=== PATIENT | male | born 1930 | race Two or more races ===

== ENCOUNTER 2018-07-27 18:29 | Inpatient (IN) ==
[2018-07-27] MEDS ORDERED: Acetaminophen 325 MG Tablet PO ONE (20:56)
--- NOTE | 2018-07-27 21:10 | ED ---
HPI General Chief complaint: Weakness Stated complaint: Sent by dr/fever/weakness/cough/sob Time Seen by Provider: 07/27/18 20:31 Source: patient and family Mode of arrival: ambulatory Limitations: no limitations History of Present Illness HPI Narrative: 88-year-old male who is mainly Sudanese-speaking presents to the emergency department for evaluation of generalized weakness, cough, weakness, shortness of breath that started 2 days ago. His PCP recommended he come in for evaluation. In addition, patient has had right hip and low back pain that started while in [place] during a trip this week. History and translation is obtained through Rosanna, a family member in the room. He denies falls but developed this pain while in [place]. She states that patient has had a temperature of 101 but denies feeling feverish. When prompted, he admits to having some urinary incontinence and numbness to the anterior thighs. He denies illicit drug use or history of cancer. He denies chest pain but states when he coughs he has abdominal discomfort. Otherwise denies abdominal pain. They also draw my attention to a sore between the first and second interdigital space that he obtained while in [place]. State patient is normally able to move about without assistance. 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 They state that patient has a pacemaker because he has had a heart attack previously. Related Data Home Medications Medication Instructions Recorded Confirmed aspirin 1 tab PO DAILY 07/27/18 07/27/18 Allergies Allergy/AdvReac Type Severity Reaction Status Date / Time No Known Allergies Allergy Verified 07/27/18 18:55 Review of Systems ROS: all other systems reviewed are negative PMFSH History History Provided By: Patient and Family Member Medical History Medical History Pacemaker (Acute) Surgical history unknown (Acute) Social History Social History Substance History: No History of Abuse Second Hand Smoke Exposure: No Smoking Status: Former smoker Tobacco Type: Cigarettes How Often Do You Have a Drink Containing Alcohol: Monthly or less Recent Travel in [place] within the Last 8 Weeks: No Recent Out of Country Travel within the Last 8 Weeks: Yes Exam Narrative Exam Narrative: GENERAL: Well-developed, well-nourished in no apparent distress SKIN: Focused skin assessment warm/dry. left 1st interdigital space- macerated with white exudate HEAD: Atraumatic. Normocephalic. EYES: Pupils equal and round. No scleral icterus. No injection or drainage. ENT: No nasal bleeding or discharge. Mucous membranes pink and moist. NECK: Trachea midline. No JVD. No lymphadenopathy CARDIOVASCULAR: Regular rate and rhythm. No murmur appreciated. RESPIRATORY: No accessory muscle use. Clear to auscultation. Breath sounds equal bilaterally. GASTROINTESTINAL: Abdomen soft, non-tender, nondistended. Hepatic and splenic margins not palpable. MUSCULOSKELETAL: No obvious deformities. No clubbing. No cyanosis. No edema. Grade 5/5 strength upper and lower extremities, patient has difficulty sitting up on his own accord however NEUROLOGICAL: Awake and alert. No obvious cranial nerve deficits. Motor grossly within normal limits. Normal speech. PSYCHIATRIC: Appropriate mood and affect; insight and judgment normal. Course Initial Documented Vital Signs Temperature 98.0 F 07/27/18 18:40 Pulse Rate 60 07/27/18 18:40 Respiratory Rate 14 07/27/18 18:40 Blood Pressure 137/61 07/27/18 18:40 Pulse Oximetry 98 07/27/18 18:40 Last Documented Vital Signs Temperature 98.3 F 07/28/18 16:00 Pulse Rate 75 07/28/18 16:00 Respiratory Rate 18 07/28/18 16:00 Blood Pressure 138/68 07/28/18 16:00 Pulse Oximetry 96 07/28/18 16:00 Medical Decision Making JOURDAN Attestation JOURDAN supervised visit: Yes Attestation: I, Dr. Spain, have reviewed the advance practice practitioner's documentation and am in agreement, met with the patient face to face, made the diagnosis, and the medical decision making was done by me. The patient was initially evaluated by Katheryn, the JOURDAN. Please see their complete history and physical. *My assessment and Findings: The patient presents with a history of developing cough, generalized weakness, fever over the last 2 days. The patient returned from a trip to [place] on Thursday. The patient additionally reports having body aches that are more prominent in the right side of the low back and right hip. The patient also reports having an episode of urinary incontinence. He denies having any dysuria or urinary urgency. Patient's examination is remarkable for having generalized weakness. No signs of erythema edema on examination of the right hip, and the patient does have full range of motion. During the course of the patient's emergency department visit, the patient's history, examination, and differential diagnosis were reviewed with the patient. The patient was placed on a monitoring engineer with oximetry and frequent blood pressure monitoring. The patient had IV access obtained and blood work sent for analysis. The patient was initially provided Toradol 15 mg IV for pain, Rocephin 1 g IV, Zithromax 500 IV when a patchy infiltrate on the lungs was noted, normal saline at 500 mL bolus was administered. The patient's diagnostic studies are remarkable for a normal white count at 8.7 , hemoglobin 13.1, platelets 221, with a monocyte of 14.1 PT 11.7, PTT 28.2, chemistry is remarkable for a GFR of 69, calcium is 8.2, lactic acid was found to be within normal limits at 1.3, alk phos 127, magnesium is 2.2. Cardiac enzymes are within normal limits. 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 An MRI of the back was ordered to rule out cord compression due to the patient's back pain, reported weakness and urinary incontinence, however this was contraindicated due to the type of implanted pacemaker that the patient had. 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 The patient's case including history, pertinent physical examination findings, and laboratory studies were discussed with Dr. Kathleen. It was agreed that the patient would be admitted to the hospitalist service. The patient's results were discussed with the patient, including the plan of care. I explained that further testing and/ or monitoring is indicated based on the patient's history, examination, and/ or laboratory findings. Therefore, I recommended admission for additional evaluation. The patient expressed understanding and was agreeable with this plan. The patient was admitted to the hospital in stable condition and sent to a bed under the care of the [facility] service. [facility] Narrative Medical decision making narrative: 88-year-old male presents to the emergency department for evaluation of generalized weakness, cough, shortness of breath, and a left foot wound that started while in [place] last week. There is also concern of left hip and back pain that started while in [place]. Denies falls but states he was treated in [place]. He improved after a shot of a medication but has since worsened again. Vital signs blood pressure 122/58, heart rate 60, temperature 98 degrees, SaO2 97% on room air. Based off of history, ordered sepsis workup as patient had been complaining of cough, shortness of breath and a wound on the left lower extremity. There was concern for possible cauda equina syndrome based off of patient's history. Ordered MRI for further evaluation. @[id number] I spoke with the in tube conversion technician who stated because he has a pacemaker that the MRI would not be done until tomorrow. They state they would research and determine if he could have an MRI. I spoke with MRI again and they confirmed that he has a [employer] Pacemaker and is unable to get an MRI. Ordered CT Thoracic and lumbar spine with contrast. Ordered rocephin and azithromycin for developing pneumonia. Tylenol for subjective fever. Dispo pending additional labs and CT. Please see my attending's note for further information and dispo. Medical Screen Exam Complete: Yes Emergency Medical Condition: Yes Differential Diagnosis Differential Diagnosis: Sepsis, pneumonia, Lab Data Result diagrams: 07/27/18 21:40 07/27/18 21:40 Lab Results 07/27/18 07/27/18 07/27/18 Range/Units 21:40 21:40 21:40 WBC 8.7 (4.0-11.0) th/mm3 RBC 4.41 L (4.50-5.90) mil/mm3 Hgb 13.1 (13.0-17.0) gm/dL Hct 39.3 (39.0-51.0) % MCV 89.1 (80.0-100.0) fL MCH 29.8 (27.0-34.0) pg MCHC 33.4 (32.0-36.0) % RDW 16.2 (11.6-17.2) % Plt Count 221 (150-450) th/mm3 MPV 9.0 (7.0-11.0) fL Neut % (Auto) 61.0 (16.0-70.0) % Lymph % (Auto) 23.7 (9.0-44.0) % Mayes % (Auto) 14.1 H (0.0-8.0) % Eos % (Auto) 0.7 (0.0-4.0) % Baso % (Auto) 0.5 (0.0-2.0) % Neut # (Auto) 5.3 (1.8-7.7) th/mm3 Lymph # (Auto) 2.1 (1.0-4.8) th/mm3 Mayes # (Auto) 1.2 H (0.0-0.9) th/mm3 Eos # (Auto) 0.1 (0.0-0.4) th/mm3 Baso # (Auto) 0.0 (0.0-0.2) th/mm3 WBC Differential . Differential Comment Auto diff final PT 11.7 H (9.8-11.6) sec INR 1.2 Ratio APTT 28.2 (24.3-30.1) sec Sodium 138 (136-145) meq/L Potassium 4.4 (3.5-5.1) meq/L Chloride 104 (98-107) meq/L Carbon Dioxide 27.4 (21.0-32.0) meq/L Anion Gap 7 (5-15) meq/L BUN 18 (7-18) mg/dL Creatinine 1.02 (0.60-1.30) mg/dL Estimated GFR 69 L (>89) mL/min POC Glucose (68-110) mg/dl Random Glucose 97 (74-106) mg/dL Lactic Acid (0.4-2.0) mmol/L Uric Acid (2.6-7.2) mg/dl Calcium 8.2 L (8.5-10.1) mg/dL Magnesium 2.2 (1.5-2.5) mg/dL Total Bilirubin 0.9 (0.2-1.0) mg/dL AST 16 (15-37) U/L ALT 28 (12-78) U/L Alkaline Phosphatase 127 H (45-117) U/L Total Creatine Kinase (39-308) U/L Troponin I (0.02-0.05) ng/mL B-Natriuretic Peptide (0-100) pg/mL Total Protein 7.7 (6.4-8.2) g/dL Albumin 3.1 L (3.4-5.0) g/dL Urine Color (Yellw/Straw) Urine Clarity (Clear) Urine pH (5.0-8.5) Ur Specific Plains (1.002-1.035) Urine Protein (Neg-Trace) mg/dL Urine Glucose (UA) (Negative) mg/dL Urine Ketones (Negative) mg/dL Urine Occult Blood (Negative) Urine Nitrate (Negative) Urine Bilirubin (Negative) Urine Urobilinogen (Less than 2) mg/dL Ur Leukocyte Esterase (Negative) Urine RBC (0-3) /hpf Urine WBC (0-5) /hpf Ur Squamous Epith Cells (0-5) /hpf Hyaline Casts (0-3) /lpf Urine Mucus (Occasional) /lpf Micro UA Comment Ur Microscopic Review Urine Culture Comments 07/27/18 07/27/18 07/27/18 Range/Units 21:40 21:40 21:40 WBC (4.0-11.0) th/mm3 RBC (4.50-5.90) mil/mm3 Hgb (13.0-17.0) gm/dL Hct (39.0-51.0) % MCV (80.0-100.0) fL MCH (27.0-34.0) pg MCHC (32.0-36.0) % RDW (11.6-17.2) % Plt Count (150-450) th/mm3 MPV (7.0-11.0) fL Neut % (Auto) (16.0-70.0) % Lymph % (Auto) (9.0-44.0) % Mayes % (Auto) (0.0-8.0) % Eos % (Auto) (0.0-4.0) % Baso % (Auto) (0.0-2.0) % Neut # (Auto) (1.8-7.7) th/mm3 Lymph # (Auto) (1.0-4.8) th/mm3 Mayes # (Auto) (0.0-0.9) th/mm3 Eos # (Auto) (0.0-0.4) th/mm3 Baso # (Auto) (0.0-0.2) th/mm3 WBC Differential Differential Comment PT (9.8-11.6) sec INR Ratio APTT (24.3-30.1) sec Sodium (136-145) meq/L Potassium (3.5-5.1) meq/L Chloride (98-107) meq/L Carbon Dioxide (21.0-32.0) meq/L Anion Gap (5-15) meq/L BUN (7-18) mg/dL Creatinine (0.60-1.30) mg/dL Estimated GFR (>89) mL/min POC Glucose (68-110) mg/dl Random Glucose (74-106) mg/dL Lactic Acid 1.3 (0.4-2.0) mmol/L Uric Acid (2.6-7.2) mg/dl Calcium (8.5-10.1) mg/dL Magnesium (1.5-2.5) mg/dL Total Bilirubin (0.2-1.0) mg/dL AST (15-37) U/L ALT (12-78) U/L Alkaline Phosphatase (45-117) U/L Total Creatine Kinase 38 L (39-308) U/L Troponin I Less than 0.02 L (0.02-0.05) ng/mL B-Natriuretic Peptide 231 H (0-100) pg/mL Total Protein (6.4-8.2) g/dL Albumin (3.4-5.0) g/dL Urine Color (Yellw/Straw) Urine Clarity (Clear) Urine pH (5.0-8.5) Ur Specific [place] (1.002-1.035) Urine Protein (Neg-Trace) mg/dL Urine Glucose (UA) (Negative) mg/dL Urine Ketones (Negative) mg/dL Urine Occult Blood (Negative) Urine Nitrate (Negative) Urine Bilirubin (Negative) Urine Urobilinogen (Less than 2) mg/dL Ur Leukocyte Esterase (Negative) Urine RBC (0-3) /hpf Urine WBC (0-5) /hpf Ur Squamous Epith Cells (0-5) /hpf Hyaline Casts (0-3) /lpf Urine Mucus (Occasional) /lpf Micro UA Comment Ur Microscopic Review Urine Culture Comments 07/27/18 07/27/18 07/28/18 Range/Units 21:40 23:25 11:24 WBC (4.0-11.0) th/mm3 RBC (4.50-5.90) mil/mm3 Hgb (13.0-17.0) gm/dL Hct (39.0-51.0) % MCV (80.0-100.0) fL MCH (27.0-34.0) pg MCHC (32.0-36.0) % RDW (11.6-17.2) % Plt Count (150-450) th/mm3 MPV (7.0-11.0) fL Neut % (Auto) (16.0-70.0) % Lymph % (Auto) (9.0-44.0) % Mayes % (Auto) (0.0-8.0) % Eos % (Auto) (0.0-4.0) % Baso % (Auto) (0.0-2.0) % Neut # (Auto) (1.8-7.7) th/mm3 Lymph # (Auto) (1.0-4.8) th/mm3 Mayes # (Auto) (0.0-0.9) th/mm3 Eos # (Auto) (0.0-0.4) th/mm3 Baso # (Auto) (0.0-0.2) th/mm3 WBC Differential Differential Comment PT (9.8-11.6) sec INR Ratio APTT (24.3-30.1) sec Sodium (136-145) meq/L Potassium (3.5-5.1) meq/L Chloride (98-107) meq/L Carbon Dioxide (21.0-32.0) meq/L Anion Gap (5-15) meq/L BUN (7-18) mg/dL Creatinine (0.60-1.30) mg/dL Estimated GFR (>89) mL/min POC Glucose 90 (68-110) mg/dl Random Glucose (74-106) mg/dL Lactic Acid (0.4-2.0) mmol/L Uric Acid 5.3 (2.6-7.2) mg/dl Calcium (8.5-10.1) mg/dL Magnesium (1.5-2.5) mg/dL Total Bilirubin (0.2-1.0) mg/dL AST (15-37) U/L ALT (12-78) U/L Alkaline Phosphatase (45-117) U/L Total Creatine Kinase (39-308) U/L Troponin I (0.02-0.05) ng/mL B-Natriuretic Peptide (0-100) pg/mL Total Protein (6.4-8.2) g/dL Albumin (3.4-5.0) g/dL Urine Color Yellow (Yellw/Straw) Urine Clarity Clear (Clear) Urine pH 5.0 (5.0-8.5) Ur Specific [place] 1.019 (1.002-1.035) Urine Protein Negative (Neg-Trace) mg/dL Urine Glucose (UA) Negative (Negative) mg/dL Urine Ketones Negative (Negative) mg/dL Urine Occult Blood Negative (Negative) Urine Nitrate Negative (Negative) Urine Bilirubin Negative (Negative) Urine Urobilinogen 4 or greater (Less than 2) mg/dL Ur Leukocyte Esterase Trace H (Negative) Urine RBC Less than 1 (0-3) /hpf Urine WBC 17 H (0-5) /hpf Ur Squamous Epith Cells <1 (0-5) /hpf Hyaline Casts 1 (0-3) /lpf Urine Mucus Few H (Occasional) /lpf Micro UA Comment Culture indicated Ur Microscopic Review Not Reportable Urine Culture Comments Culture indicated Imaging Data Radiologist's impression: Chest X-Ray 07/27/18 20:56 CONCLUSION: Patchy bibasilar consolidations either relating to atelectasis or perhaps developing infiltrates. Questionable tiny left effusion. Hip X-Ray 07/27/18 21:10 CONCLUSION: 1. No acute abnormality. 2. 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 Lumbar Spine X-Ray 07/27/18 21:10 CONCLUSION: 1. [Multilevel degenerative disc disease with some loss of disc height and marginal spurring from T11-12 through L3-4. 2. Chronic loss of height through the superior endplate of L2 and L4. No acute fracture. 3. Facet sclerosis and hypertrophy at L4-5 and L5-S1. Lumbar Spine CT 07/28/18 00:00 CONCLUSION: 1. Focal deformity at the anterior superior left lateral aspect of L1 related to a Schmorl's node or minimal fracturing. 2. Loss of height at L1 is not seen. 3. Concave deformity seen at L2, L3 and L4 as described above. The age of these fractures is not known although there is some acute angulation at the inferior aspect of L2 raising the possibility of an acute component. 4. Degenerative change throughout the lumbar spine as described above. There is severe stenosis at the L4-L5 level and moderate to severe stenosis at the L3- L4 level. Thoracic Spine CT 07/28/18 00:00 CONCLUSION: 1. No fractures seen in the thoracic spine. 2. Degenerative change throughout the thoracic spine. Discharge Plan Discharge Disposition Patient Disposition: 30 Still Patient Discharge Condition Condition: Stable Discharge Details Diagnosis: Pneumonia Physicians Team ED Provider: Henna Spain ED Midlevel Provider: Soraya Carrasco Primary Care Provider: Primary Care Andreina Zhang Attending Provider: Sunny Morales Other Providers: Cosmo Self Status ED Status: Left Department Discharge Information Discharge Date/Time: 07/28/18 13:04
--- NOTE | 2018-07-27 21:52 | XR ---
EXAM DATE: 07/27/2018 8:56 PM EDT AGE/SEX: 88 years / Male INDICATIONS: Fever. CLINICAL DATA: This is the patient's initial encounter. Patient reports that signs and symptoms have been present for 1 day and indicates a pain score of Nonresponsive. MEDICAL/SURGICAL HISTORY: None. Pacemaker. COMPARISON: No prior exams available for comparison. FINDINGS: A single AP view of the chest demonstrates patchy parenchymal opacities within the basilar segments b ilaterally. A questionable tiny left effusion. Heart is normal in size. Pacing device overlies the le ft chest. A scoliotic and degenerative spine. CONCLUSION: Patchy bibasilar consolidations either relating to atelectasis or perhaps developing infiltrates. Que stionable tiny left effusion. Electronically signed by: Alfonso Vora MD 07/27/2018 9:50 PM EDT
[2018-07-27 21:53] LABS: Baso % (Auto) 0.5 % (0.0-2.0); Eos # (Auto) 0.1 th/mm3 (0.0-0.4); Eos % (Auto) 0.7 % (0.0-4.0); Hematocrit 39.3 % (39.0-51.0); Hemoglobin 13.1 gm/dL (13.0-17.0); Lymph # (Auto) 2.1 th/mm3 (1.0-4.8); Lymph % (Auto) 23.7 % (9.0-44.0); Mean Corpuscular HGB Conc 33.4 % (32.0-36.0); Mean Corpuscular Hemoglobin 29.8 pg (27.0-34.0); Mean Corpuscular Volume 89.1 fL (80.0-100.0); Mono # (Auto) 1.2 th/mm3 (0.0-0.9); Mono % (Auto) 14.1 % (0.0-8.0); Neut # (Auto) 5.3 th/mm3 (1.8-7.7); Platelet Count 221 th/mm3 (150-450); Red Blood Count 4.41 mil/mm3 (4.50-5.90); Red Cell Distribution Width 16.2 % (11.6-17.2); White Blood Count 8.7 th/mm3 (4.0-11.0)
--- NOTE | 2018-07-27 21:54 | XR ---
EXAM DATE: 07/27/2018 9:10 PM EDT AGE/SEX: 88 years / Male INDICATIONS: Right hip pain. No known injury. CLINICAL DATA: This is the patient's initial encounter. Patient reports that signs and symptoms have been present for 4 - 6 months and indicates a pain score of Nonresponsive. MEDICAL/SURGICAL HISTORY: None. Pacemaker. COMPARISON: No prior exams available for comparison. FINDINGS: 3 views of the pelvis and right hip reveal osteopenia. Periarticular sclerotic changes involving the SI joints bilaterally. No fusion. 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 Scatte red sclerotic change involving the right and to a lesser degree left femoral heads without cortical c ollapse or femoral head flattening. No fractures or dislocations. Atherosclerotic calcifications. A d egenerative lumbar spine. CONCLUSION: 1. No acute abnormality. 2. 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 Electronically signed by: Alfonso Vora MD 07/27/2018 9:53 PM EDT
--- NOTE | 2018-07-27 21:54 | XR ---
EXAM DATE: 07/27/2018 9:10 PM EDT AGE/SEX: 88 years / Male INDICATIONS: Lower back pain. No known injury. CLINICAL DATA: This is the patient's initial encounter. Patient reports that signs and symptoms have been present for 4 - 6 months and indicates a pain score of Nonresponsive. MEDICAL/SURGICAL HISTORY: None. Pacemaker. COMPARISON: No prior exams available for comparison. FINDINGS: 5 non ribbed lumbar-type vertebral bodies. Mild levoscoliosis of the lumbar spine. Multilevel degener ative disc disease with some loss of disc height and marginal spurring from T11-12 through L3-4. Economic Developer johnson loss of height through the superior endplate of L2 and L4. Vertebral body heights are otherwise m aintained. Degenerative sclerosis in the articulating facets at L4-5 and L5-S1. Marginal sclerosis an d spurring in the right SI joint. CONCLUSION: 1. [Multilevel degenerative disc disease with some loss of disc height and marginal spurring from T1 1-12 through L3-4. 2. Chronic loss of height through the superior endplate of L2 and L4. No acute fracture. 3. Facet sclerosis and hypertrophy at L4-5 and L5-S1. Electronically signed by: King Stokes MD 07/27/2018 9:53 PM EDT
[2018-07-27 22:05] LABS: Activated Partial Thrombo Time 28.2 sec (24.3-30.1); INR 1.2 Ratio; Prothrombin Time 11.7 sec (9.8-11.6)
[2018-07-27 22:20] LABS: Alanine Aminotransferase 28 U/L (12-78); Albumin 3.1 g/dL (3.4-5.0); Anion Gap 7 meq/L (5-15); Aspartate Aminotransferase 16 U/L (15-37); Blood Urea Nitrogen 18 mg/dL (7-18); Calcium 8.2 mg/dL (8.5-10.1); Carbon Dioxide 27.4 meq/L (21.0-32.0); Chloride 104 meq/L (98-107); Glomerular Filtration Rate 69 mL/min (>89); Glucose,Random 97 mg/dL (74-106); Magnesium 2.2 mg/dL (1.5-2.5); Potassium 4.4 meq/L (3.5-5.1); Sodium 138 meq/L (136-145)
[2018-07-27 22:22] LABS: Alkaline Phosphatase 127 U/L (45-117); Total Protein 7.7 g/dL (6.4-8.2)
[2018-07-27] MEDS ORDERED: Azithromycin Inj 500 MG in Sodium Chlor 0.9% Inj 250 ML IV.SIG ONE (22:33)
[2018-07-27 23:33] LABS: Creatine Kinase 38 U/L (39-308)
[2018-07-27 23:57] LABS: Bilirubin,Urine Negative (Negative); Clarity,Urine Clear (Clear); Color,Urine Yellow (Yellw/Straw); Glucose,Urine (UA) Negative (Negative); Hyaline Casts,Urine 1 /lpf (0-3); Leukocyte Esterase,Urine Trace (Negative); Mucus,Urine Few /lpf (Occasional); Nitrite,Urine Negative (Negative); Specific Gravity,Urine 1.019 (1.002-1.035); Squamous Epithelial Cell,Urine <1 /hpf (0-5); Urobilinogen,Urine 4 or Greater mg/dL (Less than 2)
[2018-07-28] MEDS ORDERED: Sodium Chlor 0.9% Inj 500 ML IV.SIG ONE (00:08)
[2018-07-28] MEDS ORDERED: Ketorolac Inj 30 MG/ML (IVP) Vial IV.PUSH ONE (00:08)
--- NOTE | 2018-07-28 01:43 | CT ---
EXAM DATE: 07/28/2018 12:00 AM EDT AGE/SEX: 88 years / Male INDICATIONS: Back pain. Evaluate for compression fracture. CLINICAL DATA: This is the patient's initial encounter. Patient reports that signs and symptoms have been present for 1 day and indicates a pain score of 8/10. MEDICAL/SURGICAL HISTORY: Cardiovascular disease. Pacemaker. RADIATION DOSE: 24.82 CTDI (mGy) ; Combined studies COMPARISON: No prior exams available for comparison. TECHNIQUE: Contiguous axial images were acquired using a multirow detector CT scanner without contra st. Multiplanar reconstruction in the sagittal and coronal planes was performed. Using automated exp osure control and adjustment of the mA and/or kV according to patient size, radiation dose was kept a s low as reasonably achievable to obtain optimal diagnostic quality images. DICOM format image data is available electronically for review and comparison. FINDINGS: Vertebrae: Normal vertebral body height. There are marginal osteophytes seen throughout the most pro minent inferiorly. There is hypertrophic change at the posterior aspects of the spinous processes in the mid and lower thoracic spine. There is disc space loss of height throughout the thoracic spine. Alignment: The thoracic vertebral bodies are normally aligned in the sagittal plane. There is a mild dextrocurvature of the upper thoracic spine. T1 - T2: Normal. T2 - T3: The thecal sac has a normal diameter. No evidence of disc bulge or protrusion. T3 - T4: The thecal sac has a normal diameter. No evidence of disc bulge or protrusion. T4 - T5: The thecal sac has a normal diameter. No evidence of disc bulge or protrusion. T5 - T6: The thecal sac has a normal diameter. No evidence of disc bulge or protrusion. T6 - T7: The thecal sac has a normal diameter. No evidence of disc bulge or protrusion. T7 - T8: The thecal sac has a normal diameter. No evidence of disc bulge or protrusion. T8 - T9: The thecal sac has a normal diameter. No evidence of disc bulge or protrusion. T9 - T10: The thecal sac has a normal diameter. No evidence of disc bulge or protrusion. T10 - T11: The thecal sac has a normal diameter. No evidence of disc bulge or protrusion. T11 - T12: The thecal sac has a normal diameter. No evidence of disc bulge or protrusion. T12 - L1: The thecal sac has a normal diameter. No evidence of disc bulge or protrusion. CONCLUSION: 1. No fractures seen in the thoracic spine. 2. Degenerative change throughout the thoracic spine. Electronically signed by: Henry Luo MD 07/28/2018 1:42 AM EDT
--- NOTE | 2018-07-28 01:53 | CT ---
EXAM DATE: 07/28/2018 12:00 AM EDT AGE/SEX: 88 years / Male INDICATIONS: Back pain. Evaluate for compression fracture. CLINICAL DATA: This is the patient's initial encounter. Patient reports that signs and symptoms have been present for 1 day and indicates a pain score of 8/10. MEDICAL/SURGICAL HISTORY: Cardiovascular disease. Pacemaker. RADIATION DOSE: 24.82 CTDI (mGy) ; Combined studies COMPARISON: No prior exams available for comparison. TECHNIQUE: Contiguous axial images were acquired with a multirow detector CT scanner without contras t. Multiplanar reconstructions in the sagittal and coronal plane were also performed. Using automate d exposure control and adjustment of the mA and/or kV according to patient size, radiation dose was k ept as low as reasonably achievable to obtain optimal diagnostic quality images. DICOM format image data is available electronically for review and comparison. FINDINGS: Vertebrae: There appears to be a focal Schmorl node or fracture at the anterior superior left latera l aspect of the L1 vertebral body. The L1 vertebral body is normal in height. There is a biconcave de formity at the superior and inferior endplates of L2. There is a prominent concave deformity at the s uperior aspect of L3. There is a mild concave deformity at the superior aspect of L4. The age of the these deformities is not known. There is some acute angulation at the posterior inferior aspect of L2 raising the possibly some acute component at this level. The central aspect of the L2 vertebral body has lost at least 50% its original height. The anterior posterior aspects of the L2 vertebral body h ave retained most of their original height. There is 50% loss of height at the midportion of L3. The anterior and posterior margins of L3 appear normal height. Alignment: There is minimal posterior subluxation of L2 on L3 in the order of 3 mm. There is minimal anterior subluxation of L4 and L5 and L5 and S1. T12-L1: There is a vacuum phenomenon. Anterior marginal osteophytes are seen. Posterior disc margin appears intact. There is mild facet hypertrophy. The neural foramina are patent bilaterally. L1-L2: The thecal sac has a normal diameter. No evidence of disc bulge or protrusion. The neural f oramina are patent bilaterally. There is mild facet hypertrophy. L2-L3: Again noted is the minimal posterior subluxation of L2 on L3. This causes a mild impression o n the anterior aspect of the thecal sac. There is mild facet hypertrophy. The neural foramina are pat ent bilaterally. L3-L4: There is mild disc bulge. There is a vacuum phenomenon at the disc. There is facet and ligame nt flavum hypertrophy. There is moderate to severe narrowing of the thecal sac secondary to these ailyn nges. The neural foramina are patent bilaterally. L4-L5: There is minimal disc bulge. There is severe facet and ligament flavum hypertrophy. These ailyn nges lead to severe narrowing of the thecal sac especially in the transverse dimension. There is narr owing of the neural foramina bilaterally being worse on the left. L5-S1: There is mild diffuse disc bulge and posterior osteophytic ridging. Significant fecal sac is not seen. There is severe facet hypertrophy. There is neural foraminal narrowing being worse on the l eft. CONCLUSION: 1. Focal deformity at the anterior superior left lateral aspect of L1 related to a Schmorl's node or minimal fracturing. 2. Loss of height at L1 is not seen. 3. Concave deformity seen at L2, L3 and L4 as described above. The age of these fractures is not kno wn although there is some acute angulation at the inferior aspect of L2 raising the possibility of an acute component. 4. Degenerative change throughout the lumbar spine as described above. There is severe stenosis at t he L4-L5 level and moderate to severe stenosis at the L3-L4 level. Electronically signed by: Henry Luo MD 07/28/2018 1:52 AM EDT
[2018-07-28] MEDS ORDERED: Acetaminophen 325 MG Tablet PO PRN ×2 (04:48→23:54)
[2018-07-28] MEDS ORDERED: Bisacodyl 10 MG Supp RECTAL PRN (04:48)
[2018-07-28] MEDS: Heparin - SQ 10,000 UNITS/ML Vial SQ SCH ×2 (06:12→16:17)
[2018-07-28] MEDS ORDERED: Aspirin 325 MG Tablet PO SCH (09:00)
--- NOTE | 2018-07-28 11:28 | P.HP ---
History of Present Illness Service: Hospitalist Primary Care Physician: No Primary Care Physician Chief Complaint: Generalized weakness, cough, shortness of breath History of Present Illness: Mr. 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 Patient also complains of right hip pain as well as left leg pain starting from left great toe radiating upwards towards the medial knee. Patient had a temperature of 101F at home. Also, patient complains of increased urinary frequency but no dysuria or hematuria. At the time of this interview in the morning of 07/28/2018, patient complains of no left leg pain. He is on room air. Family member at bedside. Past medical history: No significant past medical history. Past surgical history: No significant surgeries in the past. Has Pacemaker. Social history: Patient denies using tobacco, alcohol or illicit drugs. Family history: No family history of Alzheimer's or Parkinson's or cancer. Inpatient Certification: I certify that the inpatient services were ordered in accordance with Medicare regulations governing the order. This includes certification that hospital inpatient services are reasonable and necessary and in the case of services not specified as inpatient-only under 42 CFR 419.22(n), that they are appropriately provided as inpatient services in accordance to with the 2-midnight benchmark under 43 CFR 412.3(e) Estimated Total Length of Stay (Days): 2 Plans for Post Hospital Care: Not yet determined Review of Systems All other systems reviewed negative except as stated in [facility] - History History Provided By: Patient, Family Member - Medical History Medical History: Medical History (Last Reviewed 07/27/18 @ 21:47 by MIKEY Ramsey) Pacemaker Surgical history unknown - Tobacco History Second Hand Smoke Exposure: No Tobacco Use In Past 30 Days: No Smoking Status: Former smoker Tobacco Type: Cigarettes - Alcohol History How Often Do You Have a Drink Containing Alcohol: Monthly or less - Substance Use History Substance History: No History of Abuse - Travel History Recent Travel in the [place] Within the Last 8 Weeks: No Recent Travel Out of the Country Within the Last 8 Weeks: No - Immunization History Tetanus Immunization: Unsure Medications and Allergies Active Medications: Active Medications Acetaminophen (Tylenol) 650 mg PO Q4H PRN PRN Reason: Temp > 100.4 Al Hydroxide/Mg Hydroxide (Milk Of Magnesia Liq) 30 ml PO Q12H PRN PRN Reason: Mild Constipation Aspirin (Ecotrin) 81 mg PO DAILY DEVONTE Bisacodyl (Dulcolax Supp) 10 mg RECTAL DAILY PRN PRN Reason: SEVERE CONSITIPATION Heparin Sodium (Porcine) (Heparin Inj) 5,000 units SQ Q12H DEVONTE Last Admin: 07/28/18 06:12 Dose: 5,000 units Azithromycin 500 mg/ Sodium (Chloride) 250 mls @ 250 mls/hr IV.SIG Q24H DEVONTE Ceftriaxone Sodium 1,000 mg/ (Sodium Chloride) 100 mls @ 200 mls/hr IV.SIG Q24H DEVONTE Lactulose (Lactulose Liq) 30 ml PO DAILY PRN PRN Reason: SEVERE CONSITIPATION Ondansetron HCl (Zofran Inj) 4 mg IV.PUSH Q6H PRN PRN Reason: NAUSEA OR VOMITING Senna/Docusate Sodium (Sreena-Colace) 1 tab PO BID [facility] Sennosides (Senokot) 17.2 mg PO Q12H PRN PRN Reason: Moderate Constipation Allergies Allergy/AdvReac Type Severity Reaction Status Date / Time No Known Allergies Allergy Verified 07/27/18 18:55 Home Medications Medication Instructions Recorded Confirmed Type aspirin 1 tab PO DAILY 07/27/18 07/27/18 History Exam Vital signs: Vital Signs 07/27/18 18:40 07/27/18 20:58 07/27/18 23:24 Temperature 98.0 F Pulse Rate 60 60 72 Respiratory Rate 14 24 18 Blood Pressure 137/61 122/58 L 116/56 L Pulse Oximetry 98 97 95 07/28/18 03:30 07/28/18 06:13 07/28/18 07:00 Temperature Pulse Rate 60 60 64 Respiratory Rate 16 16 Blood Pressure 102/63 113/55 L Pulse Oximetry 97 96 07/28/18 08:01 Temperature 98 F Pulse Rate 64 Respiratory Rate 20 Blood Pressure 124/85 Pulse Oximetry 98 Intake & Output 07/27/18 07/28/18 07/28/18 18:59 06:59 18:59 Intake Total 850 / 850 Balance 850 / 850 Weight 63.503 kg Intake: IV 850 / 850 Azithromycin Inj 500 MG In NS 250 / 250 Inj 250 ML @ 250 mls/hr IV.SIG ONCE ONE Rx#:[id number] NS Inj 500 ML @ Wide Open IV. 500 / 500 SIG BOLUS ONE Rx#:[id number] Rocephin Inj 1,000 MG In NS Inj 100 / 100 100 ML @ 200 mls/hr IV.SIG ONCE ONE Rx#:[id number] Narrative: GENERAL: This is a well-nourished, well-developed patient, in no apparent distress. Speaks Singaporean only. SKIN: No rashes, ecchymoses or lesions. Warm and dry. HEAD: Atraumatic. Normocephalic. No temporal or scalp tenderness. EYES: Pupils equal round and reactive. No injection or drainage. ENT: Nose without bleeding, purulent drainage or septal hematoma. Airway patent. NECK: Trachea midline. No lymphadenopathy. Supple, nontender, no meningeal signs. CARDIOVASCULAR: Regular rate and rhythm without murmurs, gallops, or rubs. No JVD. RESPIRATORY: Clear to auscultation. Breath sounds equal bilaterally. No wheezes , rales, or rhonchi. GASTROINTESTINAL: Abdomen soft, non-tender, nondistended. No guarding. MUSCULOSKELETAL: Extremities without clubbing, cyanosis, or edema. NEUROLOGICAL: Awake and alert. Cranial nerves II through XII intact. No focal neurological deficits. Normal speech. Results - Labs CBC & Chem 7: 07/27/18 21:40 07/27/18 21:40 Labs: Laboratory Results - last 24 hr 07/27/18 07/27/18 07/27/18 21:40 21:40 21:40 WBC 8.7 RBC 4.41 L Hgb 13.1 Hct 39.3 MCV 89.1 MCH 29.8 MCHC 33.4 RDW 16.2 Plt Count 221 MPV 9.0 Neut % (Auto) 61.0 Lymph % (Auto) 23.7 [place] % (Auto) 14.1 H Eos % (Auto) 0.7 Baso % (Auto) 0.5 Neut # (Auto) 5.3 Lymph # (Auto) 2.1 [place] # (Auto) 1.2 H Eos # (Auto) 0.1 Baso # (Auto) 0.0 WBC Differential . Differential Comment Auto diff final PT 11.7 H INR 1.2 APTT 28.2 Sodium 138 Potassium 4.4 Chloride 104 Carbon Dioxide 27.4 Anion Gap 7 BUN 18 Creatinine 1.02 Estimated GFR 69 L Random Glucose 97 Lactic Acid Calcium 8.2 L Magnesium 2.2 Total Bilirubin 0.9 AST 16 ALT 28 Alkaline Phosphatase 127 H Total Creatine Kinase Troponin I B-Natriuretic Peptide Total Protein 7.7 Albumin 3.1 L Urine Color Urine Clarity Urine pH Ur Specific [place] Urine Protein Urine Glucose (UA) Urine Ketones Urine Occult Blood Urine Nitrate Urine Bilirubin Urine Urobilinogen Ur Leukocyte Esterase Urine RBC Urine WBC Ur Squamous Epith Cells Hyaline Casts Urine Mucus Micro UA Comment Ur Microscopic Review Urine Culture Comments 07/27/18 07/27/18 07/27/18 21:40 21:40 21:40 WBC RBC Hgb Hct MCV MCH MCHC RDW Plt Count MPV Neut % (Auto) Lymph % (Auto) [place] % (Auto) Eos % (Auto) Baso % (Auto) Neut # (Auto) Lymph # (Auto) [place] # (Auto) Eos # (Auto) Baso # (Auto) WBC Differential Differential Comment PT INR APTT Sodium Potassium Chloride Carbon Dioxide Anion Gap BUN Creatinine Estimated GFR Random Glucose Lactic Acid 1.3 Calcium Magnesium Total Bilirubin AST ALT Alkaline Phosphatase Total Creatine Kinase 38 L Troponin I Less than 0.02 L B-Natriuretic Peptide 231 H Total Protein Albumin Urine Color Urine Clarity Urine pH Ur Specific [place] Urine Protein Urine Glucose (UA) Urine Ketones Urine Occult Blood Urine Nitrate Urine Bilirubin Urine Urobilinogen Ur Leukocyte Esterase Urine RBC Urine WBC Ur Squamous Epith Cells Hyaline Casts Urine Mucus Micro UA Comment Ur Microscopic Review Urine Culture Comments 07/27/18 23:25 WBC RBC Hgb Hct MCV MCH MCHC RDW Plt Count MPV Neut % (Auto) Lymph % (Auto) [place] % (Auto) Eos % (Auto) Baso % (Auto) Neut # (Auto) Lymph # (Auto) [place] # (Auto) Eos # (Auto) Baso # (Auto) WBC Differential Differential Comment PT INR APTT Sodium Potassium Chloride Carbon Dioxide Anion Gap BUN Creatinine Estimated GFR Random Glucose Lactic Acid Calcium Magnesium Total Bilirubin AST ALT Alkaline Phosphatase Total Creatine Kinase Troponin I B-Natriuretic Peptide Total Protein Albumin Urine Color Yellow Urine Clarity Clear Urine pH 5.0 Ur Specific [place] 1.019 Urine Protein Negative Urine Glucose (UA) Negative Urine Ketones Negative Urine Occult Blood Negative Urine Nitrate Negative Urine Bilirubin Negative Urine Urobilinogen 4 or greater Ur Leukocyte Esterase Trace H Urine RBC Less than 1 Urine WBC 17 H Ur Squamous Epith Cells <1 Hyaline Casts 1 Urine Mucus Few H Micro UA Comment Culture indicated Ur Microscopic Review Not Reportable Urine Culture Comments Culture indicated - Imaging Impressions Chest X-Ray 07/27/18 20:56 CONCLUSION: Patchy bibasilar consolidations either relating to atelectasis or perhaps developing infiltrates. Questionable tiny left effusion. Hip X-Ray 07/27/18 21:10 CONCLUSION: 1. No acute abnormality. 2. 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 Lumbar Spine X-Ray 07/27/18 21:10 CONCLUSION: 1. [Multilevel degenerative disc disease with some loss of disc height and marginal spurring from T11-12 through L3-4. 2. Chronic loss of height through the superior endplate of L2 and L4. No acute fracture. 3. Facet sclerosis and hypertrophy at L4-5 and L5-S1. Lumbar Spine CT 07/28/18 00:00 CONCLUSION: 1. Focal deformity at the anterior superior left lateral aspect of L1 related to a Schmorl's node or minimal fracturing. 2. Loss of height at L1 is not seen. 3. Concave deformity seen at L2, L3 and L4 as described above. The age of these fractures is not known although there is some acute angulation at the inferior aspect of L2 raising the possibility of an acute component. 4. Degenerative change throughout the lumbar spine as described above. There is severe stenosis at the L4-L5 level and moderate to severe stenosis at the L3- L4 level. Thoracic Spine CT 07/28/18 00:00 CONCLUSION: 1. No fractures seen in the thoracic spine. 2. Degenerative change throughout the thoracic spine. Caprini VTE Risk Assessment Caprini VTE Risk Assessment: No/Low Risk (score <= 1) Caprini Risk Assessment Model: Point Value = 1 Point Value = 2 Point Value = 3 Point Value = 5 Age 41-60 Minor surgery BMI > 25 kg/m2 Swollen legs Varicose veins or History of unexplained or recurrent spontaneous Oral contraceptives or hormone replacement Sepsis (< 1 month) Serious lung disease, including pneumonia (< 1 month) Abnormal pulmonary function Acute myocardial infarction Congestive heart failure (< 1 month) History of inflammatory bowel disease Medical patient at bed rest Age 61-74 Arthroscopic surgery Major open surgery (> 45 min) Laparoscopic surgery (> 45 min) Malignancy Confined to bed (> 72 hours) Immobilizing plaster cast Central venous access Age >= 75 History of VTE Family history of VTE Factor V Leiden Prothrombin [id number] Lupus anticoagulant Anticardiolipin antibodies Elevated serum homocysteine Heparin-induced thrombocytopenia Other congenital or acquired thrombophilia Stroke (< 1 month) Elective arthroplasty Hip, pelvis, or leg fracture Acute spinal cord injury (< 1 month) Prophylaxis Regimen: Total Risk Factor Score Risk Level Prophylaxis Regimen 0-1 Low Early ambulation 2 Moderate Order ONE of the following: *Sequential Compression Device (SCD) *Heparin 5000 units SQ BID 3-4 Higher Order ONE of the following medications: *Heparin 5000 units SQ TID *Enoxaparin/Lovenox 40 mg SQ daily (WT < 150 kg, CrCl > 30 mL/min) *Enoxaparin/Lovenox 30 mg SQ daily (WT < 150 kg, CrCl > 10-29 mL/min) *Enoxaparin/Lovenox 30 mg SQ BID (WT < 150 kg, CrCl > 30 mL/min) AND/OR *Sequential Compression Device (SCD) 5 or more Highest Order ONE of the following medications: *Heparin 5000 units SQ TID (Preferred with Epidurals) *Enoxaparin/Lovenox 40 mg SQ daily (WT < 150 kg, CrCl > 30 mL/min) *Enoxaparin/Lovenox 30 mg SQ daily (WT < 150 kg, CrCl > 10-29 mL/min) *Enoxaparin/Lovenox 30 mg SQ BID (WT < 150 kg, CrCl > 30 mL/min) AND *Sequential Compression Device (SCD) Assessment and Plan - Plan Mr. 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 He also complains of increased urinary frequency as well as left leg pain starting from his great toe all the way to below the knee. Chest x-ray shows bibasilar consolidation. Community-acquired pneumonia Possible urinary tract infection -Follow urine culture results. -Patient is currently on azithromycin 500 mg daily as well as ceftriaxone 1 g daily. 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 No acute issues. Mild hypokalemia Hypomagnesemia Hypocalcemia - Albumin corrected calcium is 7.7. -We will start p.o. potassium chloride supplementation. -We will replace magnesium with magnesium sulfate IV. 3 g ordered. Will check BMP, mg tomorrow. Full code. Heparin SQ. Discharge plan: Patient can likely be discharged home on Levaquin PO tomorrow .
[2018-07-28] MEDS: Senna/Docusate Sodium 8.6/50 MG Tablet PO SCH (12:24)
[2018-07-29] MEDS: Senna/Docusate Sodium 8.6/50 MG Tablet PO SCH ×3 (00:10→21:16)
[2018-07-29] MEDS ORDERED: Azithromycin Inj 500 MG in Sodium Chlor 0.9% Inj 250 ML IV.SIG SCH (01:00)
[2018-07-29] MEDS: Heparin - SQ 10,000 UNITS/ML Vial SQ SCH ×2 (04:46→17:49)
[2018-07-29 06:45] LABS: Baso # (Auto) 0.1 th/mm3 (0.0-0.2); Baso % (Auto) 1.3 % (0.0-2.0); Eos # (Auto) 0.1 th/mm3 (0.0-0.4); Eos % (Auto) 1.8 % (0.0-4.0); Hematocrit 36.6 % (39.0-51.0); Hemoglobin 12.2 gm/dL (13.0-17.0); Lymph % (Auto) 38.8 % (9.0-44.0); Mean Corpuscular HGB Conc 33.4 % (32.0-36.0); Mean Corpuscular Hemoglobin 29.9 pg (27.0-34.0); Mean Corpuscular Volume 89.7 fL (80.0-100.0); Mean Platelet Volume 9.1 fL (7.0-11.0); Mono # (Auto) 0.6 th/mm3 (0.0-0.9); Mono % (Auto) 11.3 % (0.0-8.0); Neut # (Auto) 2.5 th/mm3 (1.8-7.7); Neut % (Auto) 46.8 % (16.0-70.0); Platelet Count 216 th/mm3 (150-450); Red Blood Count 4.08 mil/mm3 (4.50-5.90); Red Cell Distribution Width 15.4 % (11.6-17.2); White Blood Count 5.3 th/mm3 (4.0-11.0)
[2018-07-29 07:08] LABS: Calcium 8.3 mg/dL (8.5-10.1); Carbon Dioxide 26.1 meq/L (21.0-32.0)
[2018-07-29] MEDS: Azithromycin 250 MG Tablet PO SCH (08:39)
--- NOTE | 2018-07-29 10:44 | P.PNIM ---
Subjective Interval history: f/u; pneumonia in no acute distress. resting comfortably. no fever. family at the bedside. denies back pain, urinary incontinence or lower extremity weakness. d/w the RN. Physical Exam Vital signs: Vital Signs 07/28/18 12:00 07/28/18 16:00 07/28/18 21:10 Temperature 98.0 F 98.3 F 98.1 F Pulse Rate 70 75 61 Respiratory Rate 18 18 18 Blood Pressure 142/61 H 138/68 120/67 Pulse Oximetry 99 96 98 07/29/18 00:00 07/29/18 03:44 07/29/18 08:00 Temperature 99.2 F 98.9 F Pulse Rate 69 60 Respiratory Rate 18 18 20 Blood Pressure 116/57 L 120/57 L Pulse Oximetry 92 L 92 L Intake & Output 07/28/18 07/29/18 07/29/18 18:59 06:59 18:59 Intake Total 300 / 300 Output Total 450 / 450 Balance -150 / -150 Weight 59.2 kg 59.2 kg Intake: IV 100 / 100 Rocephin Inj 1,000 MG In NS Inj 100 / 100 100 ML @ 200 mls/hr IV.SIG Q24H DEVONTE Rx#:[id number] Oral 200 / 200 Output: Urine 450 / 450 Other: # Voids 5 1 Date of Last Bowel Movement 07/27/18 07/26/18 Weight On Admission 63.503 kg - Constitutional no acute distress - Routine HEENT Exam Eye: Present: conjunctivae pink (left red eye.) - Routine Respiratory Exam Present: CTA bilaterally - Routine Cardiovascular Exam Present: RRR - Routine Abdominal Exam Present: soft - Routine Extremities Exam Comments: no pedal edema. Results - Labs CBC & Chem 7: 07/29/18 05:50 07/29/18 05:50 Laboratory Results - last 24 hr 07/27/18 07/28/18 07/29/18 21:40 11:24 05:50 CBC w Diff Auto diff final WBC 5.3 RBC 4.08 L Hgb 12.2 L Hct 36.6 L MCV 89.7 MCH 29.9 MCHC 33.4 RDW 15.4 Plt Count 216 MPV 9.1 Neut % (Auto) 46.8 Lymph % (Auto) 38.8 [place] % (Auto) 11.3 H Eos % (Auto) 1.8 Baso % (Auto) 1.3 Neut # (Auto) 2.5 Lymph # (Auto) 2.0 [place] # (Auto) 0.6 Eos # (Auto) 0.1 Baso # (Auto) 0.1 WBC Differential . Differential Comment . Sodium Potassium Chloride Carbon Dioxide Anion Gap BUN Creatinine Estimated GFR POC Glucose 90 Random Glucose Uric Acid 5.3 Calcium 07/29/18 05:50 CBC w Diff WBC RBC Hgb Hct MCV MCH MCHC RDW Plt Count MPV Neut % (Auto) Lymph % (Auto) [place] % (Auto) Eos % (Auto) Baso % (Auto) Neut # (Auto) Lymph # (Auto) [place] # (Auto) Eos # (Auto) Baso # (Auto) WBC Differential Differential Comment Sodium 140 Potassium 4.0 Chloride 105 Carbon Dioxide 26.1 Anion Gap 9 BUN 20 H Creatinine 0.88 Estimated GFR 82 L POC Glucose Random Glucose 90 Uric Acid Calcium 8.3 L Microbiology 07/27/18 21:15 Wound - Toe Gram Stain - Final 07/27/18 21:15 Wound - Toe Wound Culture - Preliminary Staphylococcus aureus Group B beta Strep 07/27/18 21:40 Blood - Peripheral Aerobic Blood Culture - Preliminary No growth in 1 day 07/27/18 21:40 Blood - Peripheral Anaerobic Blood Culture - Preliminary No growth in 1 day 07/27/18 21:30 Blood - Peripheral Aerobic Blood Culture - Preliminary No growth in 1 day 07/27/18 21:30 Blood - Peripheral Anaerobic Blood Culture - Preliminary No growth in 1 day Assessment and Plan - Plan Community-acquired pneumonia Possible urinary tract infection -Follow culture results. -Patient is currently on azithromycin 500 mg daily as well as ceftriaxone 1 g daily. 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 No acute issues. Mild hypokalemia/Hypomagnesemia replaced. left eye conjunctivitis- start on oph. erythromycin. of note CT spine findings d/w the patient's family; they would like to have further f/u with his pcp as outpatient. Full code. Heparin SQ. Discharge Planning: dc home tomorrow if stable.
--- NOTE | 2018-07-29 11:07 | P.PNWCN ---
Wound Care Nurse Consult Description: Wound consult ordered by for wound management. Communicated with: Merly RIVERA, Recommendation: 1.Encourage patient to ambulate to tolerance reposition every 2 hours. 2. Cleanse left first/second digits with warm soap and water rinse pat dry. 3. Apply Cavilon skin prep to wound base and periwound x2 , cover with Maxorb AG cut to fit wound base and secure with Versatel silicone contact layer. 4. Change Dressing every 7 days or as needed for dislodgement/or soiled . Additional information: Patient was seen today by magazine writer for wound management.Patient has son in law at bedside translating for patient Patient arrived from [place] ~2 weeks ago..Patient ambulates with increase weakness.patient stated no prior trauma to left foot/digits.Dressing removed from 1/2 l digits wound cleansed with normals nadia pat dry.Patient noted to have Moisture/friction partial thickness skin loss to left second digit measuring 1.0cm x 0.8cm wound base moist pink tender to touch.Wound edges are well defined.scant serous exudate noted without odor.Wound cleansed with normal saline pat dry skin prep applied to wound base and periwound covered with Versatel.2x2 gauze pad placed between 1/2 digit for air.Patient tolerated wound care well. Wound/Pressure Injury - Wound Left Toe - 2nd Digit Wound Assessment: Admission Wound Type: Blister Is This a Chronic Wound: No Requested from Provider a Wound Care Consult: No (Trisha RIVERA,[facility] seen 07/29) Length (cm): 1.0 Width (cm): 0.8 Wound Bed Appearance: [place] Surrounding Tissue Temperature: Cool Drainage Description: Serous Drainage Amount: Scant Drainage Odor: No Odor Dressing Status: Changed, Open to Air Cleansing Solution: Saline Wound Packing Type: Alginate Primary Dressing: Versatel Wound Dressing Change Date: 07/29/18
[2018-07-29] MEDS: Erythromycin 0.5% Opth Oint 3.5 GM Tube LEFT EYE SCH ×4 (12:09→22:53)
[2018-07-30 00:33] VITALS: RESP 18
[2018-07-30] MEDS: Heparin - SQ 10,000 UNITS/ML Vial SQ SCH (04:19)
--- NOTE | 2018-07-30 08:09 | P.PNIM ---
Subjective Interval history: f/u; pneumonia in no acute distress. resting comfortably. no fever. pain is controlled. family at the bedside. Physical Exam Vital signs: Vital Signs 07/29/18 12:00 07/29/18 16:00 07/29/18 20:00 Temperature 97.5 F L 97 F L 98.0 F Pulse Rate 67 61 61 Respiratory Rate 20 20 20 Blood Pressure 130/58 L 132/60 103/55 L Pulse Oximetry 50 L 97 93 L 07/30/18 00:00 Temperature 96.9 F L Pulse Rate 69 Respiratory Rate 18 Blood Pressure 114/55 L Pulse Oximetry 95 Intake & Output 07/29/18 07/30/18 07/30/18 18:59 06:59 18:59 Intake Total 360 / 360 340 / 340 Balance 360 / 360 340 / 340 Weight 57.8 kg Intake: IV 100 / 100 Rocephin Inj 1,000 MG In NS Inj 100 / 100 100 ML @ 200 mls/hr IV.SIG Q24H DEVONTE Rx#:[id number] Oral 360 / 360 240 / 240 Other: # Voids 3 3 - Constitutional no acute distress - Routine HEENT Exam Eye: Present: conjunctivae pink (left red eye has improved.) - Routine Respiratory Exam Present: CTA bilaterally - Routine Cardiovascular Exam Present: RRR - Routine Abdominal Exam Present: soft - Routine Extremities Exam Comments: no pedal edema. - Routine Neurological Exam Present: alert Results - Labs CBC & Chem 7: 07/29/18 05:50 07/29/18 05:50 Microbiology 07/27/18 21:15 Wound - Toe Gram Stain - Final 07/27/18 21:15 Wound - Toe Wound Culture - Final Staphylococcus aureus Group B beta Strep 07/27/18 23:25 Clean Catch Urine Urine Culture - Preliminary <10,000 cfu/mL gram positive jordan - no further workup 07/27/18 21:40 Blood - Peripheral Aerobic Blood Culture - Preliminary No growth in 2 days 07/27/18 21:40 Blood - Peripheral Anaerobic Blood Culture - Preliminary No growth in 2 days 07/27/18 21:30 Blood - Peripheral Aerobic Blood Culture - Preliminary No growth in 2 days 07/27/18 21:30 Blood - Peripheral Anaerobic Blood Culture - Preliminary No growth in 2 days Assessment and Plan - Plan Community-acquired pneumonia Possible urinary tract infection -blood cultures negative and UC with gram-positive jordan. -Patient is currently on azithromycin 500 mg daily as well as ceftriaxone 1 g daily; will switch to po antibiotics upon discharge. 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 No acute issues. Mild hypokalemia/Hypomagnesemia replaced. left eye conjunctivitis- better- start on oph. erythromycin. of note CT spine and hip XR findings d/w the patient's family; they would like to proceed with conservative care in light of his advanced age and have a f/u with his pcp as outpatient with no further w/u at this time. Full code. Heparin SQ. Discharge Planning: dc home today with f/u with pcp. see med list. d/w the patient's family at the bedside.
--- NOTE | 2018-07-30 08:20 | P.DS ---
Date of admission: 07/28/18 01:29 Primary care physician: No Primary Care Physician Brief History from admission: Mr. Haynes is a pleasant 88-year-old French-speaking male with pacemaker likely due to symptomatic bradycardia who presented to the emergency department on 07/27/2018 due to generalized weakness, cough, shortness of breath that started 2 days prior to this admission. Patient also complains of right hip pain as well as left leg pain starting from left great toe radiating upwards towards the medial knee. Patient had a temperature of 101F at home. Also, patient complains of increased urinary frequency but no dysuria or hematuria. At the time of this interview in the morning of 07/28/2018, patient complains of no left leg pain. He is on room air. Family member at bedside. Past medical history: No significant past medical history. Past surgical history: No significant surgeries in the past. Has Pacemaker. Social history: Patient denies using tobacco, alcohol or illicit drugs. Family history: No family history of Alzheimer's or Parkinson's or cancer. DS: Medications - Discharge Medications Prescriptions: levofloxacin [Levaquin] 500 mg PO DAILY 7 Days #7 tab DS: Summary Hospital Course: Community-acquired pneumonia Possible urinary tract infection -blood cultures negative and UC with gram-positive jordan. -Patient is currently on azithromycin 500 mg daily as well as ceftriaxone 1 g daily; will switch to po antibiotics upon discharge. 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 No acute issues. Mild hypokalemia/Hypomagnesemia replaced. left eye conjunctivitis- better- start on oph. erythromycin. of note CT spine and hip XR findings d/w the patient's family; they would like to proceed with conservative care in light of his advanced age and have a f/u with his pcp as outpatient with no further w/u at this time. - Time Spent with Patient Total time spent providing and/or coordinating discharge services: Less than 30 minutes - Quality: VTE Deep Vein Thrombosis/Pulmonary Embolism Present on Admission: No Exam Vital signs: Vital Signs 07/29/18 12:00 07/29/18 16:00 07/29/18 20:00 Temperature 97.5 F L 97 F L 98.0 F Pulse Rate 67 61 61 Respiratory Rate 20 20 20 Blood Pressure 130/58 L 132/60 103/55 L Pulse Oximetry 50 L 97 93 L 07/30/18 00:00 Temperature 96.9 F L Pulse Rate 69 Respiratory Rate 18 Blood Pressure 114/55 L Pulse Oximetry 95 Intake & Output 07/29/18 07/30/18 07/30/18 18:59 06:59 18:59 Intake Total 360 / 360 340 / 340 Balance 360 / 360 340 / 340 Weight 57.8 kg Intake: IV 100 / 100 Rocephin Inj 1,000 MG In NS Inj 100 / 100 100 ML @ 200 mls/hr IV.SIG Q24H DEVONTE Rx#:[id number] Oral 360 / 360 240 / 240 Other: # Voids 3 3 - Constitutional no acute distress - Routine Respiratory Exam Present: CTA bilaterally - Routine Cardiovascular Exam Present: RRR - Routine Abdominal Exam Present: soft - Routine Extremities Exam Comments: no pedal edema. - Routine Neurological Exam Present: alert Results Procedures completed during hospitalization: none. Labs on day of discharge: Preliminary micro results at discharge 07/27/18 23:25 Urine Culture - Preliminary Clean Catch Urine <10,000 cfu/mL gram positive jordan - no further workup 07/27/18 21:40 Aerobic Blood Culture - Preliminary Blood - Peripheral No growth in 2 days Anaerobic Blood Culture - Preliminary No growth in 2 days 07/27/18 21:30 Aerobic Blood Culture - Preliminary Blood - Peripheral No growth in 2 days Anaerobic Blood Culture - Preliminary No growth in 2 days - Impressions ITS Impressions Chest X-Ray 07/27/18 20:56 CONCLUSION: Patchy bibasilar consolidations either relating to atelectasis or perhaps developing infiltrates. Questionable tiny left effusion. Hip X-Ray 07/27/18 21:10 CONCLUSION: 1. No acute abnormality. 2. 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 Lumbar Spine X-Ray 07/27/18 21:10 CONCLUSION: 1. [Multilevel degenerative disc disease with some loss of disc height and marginal spurring from T11-12 through L3-4. 2. Chronic loss of height through the superior endplate of L2 and L4. No acute fracture. 3. Facet sclerosis and hypertrophy at L4-5 and L5-S1. Lumbar Spine CT 07/28/18 00:00 CONCLUSION: 1. Focal deformity at the anterior superior left lateral aspect of L1 related to a Schmorl's node or minimal fracturing. 2. Loss of height at L1 is not seen. 3. Concave deformity seen at L2, L3 and L4 as described above. The age of these fractures is not known although there is some acute angulation at the inferior aspect of L2 raising the possibility of an acute component. 4. Degenerative change throughout the lumbar spine as described above. There is severe stenosis at the L4-L5 level and moderate to severe stenosis at the L3- L4 level. Thoracic Spine CT 07/28/18 00:00 CONCLUSION: 1. No fractures seen in the thoracic spine. 2. Degenerative change throughout the thoracic spine. Discharge Plan - Discharge Disposition Patient Disposition: Discharge Home - Discharge Condition Condition: Stable - Discharge Order Discharge Orders: Discharge Order (Routine); Ordered 07/30/18 Ordered By: Shantell Veloz - Physicians Team Primary Care Provider: Primary Care Andreina Zhang Attending Provider: Shantell Veloz Other Providers: Cosmo Self MD
[2018-07-30] MEDS: Senna/Docusate Sodium 8.6/50 MG Tablet PO SCH (08:42)
[2018-07-30] MEDS: Azithromycin 250 MG Tablet PO SCH (08:42)
[2018-07-30] MEDS: Erythromycin 0.5% Opth Oint 3.5 GM Tube LEFT EYE SCH (08:43)
[2018-07-30 08:52] VITALS: BP 119/56; PULSE 60; TEMP 98.4; O2SAT 96
== END 2018-07-30 10:09 | disposition home or self-care (01) ==
LOC: NEPC 18:29 → NEDA 07-28 01:29 → NEDH 07-28 05:25 → PH3 07-28 10:45
PROVIDERS: ADMIT Internal Medicine; ATTEND Internal Medicine